=== PATIENT | male | born 2000 | race African-American/Black ===

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

== ENCOUNTER 2022-04-06 08:36 | Emergency (ER) | payer MEDICAID, OTHER ==
[~2022-04-06] VITALS: Ht 177.8 cm; Wt 71.5 kg
[2022-04-06 10:55] VITALS: BP 124/84
[2022-04-06] MEDS ORDERED: AMOX-277 PO (11:33)
[2022-04-06] MEDS ORDERED: PRED20TA2 PO (11:33)
== END 2022-04-06 11:45 | disposition home or self-care (01) ==
LOC: ER 08:36
DX: J06.9 Acute upper respiratory infection, unspecified (principal); Z20.822 Contact with and (suspected) exposure to COVID-19
CPT/HCPCS: 36415; 71045

== ENCOUNTER 2024-06-11 00:42 | Emergency (ER) | payer SELFPAY ==
[~2024-06-11] VITALS: Ht 177.8 cm; Wt 71.8 kg
[2024-06-11 00:42] VITALS: TEMP 98.2
[~2024-06-11 00:42] MED LIST: AMOX875T4 PO; PRED20TA2 PO
[2024-06-11 00:45] VITALS: BP 123/72; PULSE 58; RESP 1; O2SAT 96
== END 2024-06-11 02:17 | disposition home or self-care (01) ==
LOC: ER 00:42
DX: S46.911A Strain of unspecified muscle, fascia and tendon at shoulder and upper arm level, right arm, initial encounter (principal); V86.56XA Driver of dirt bike or motor/cross bike injured in nontraffic accident, initial encounter; Y93.89 Activity, other specified; Y92.89 Other specified places as the place of occurrence of the external cause; Y99.8 Other external cause status
CPT/HCPCS: 73030